=== PATIENT | female | born 1950 | race Caucasian/White ===

== ENCOUNTER 2017-04-28 17:03 | Emergency (ER) | payer MEDICARE ==
[~2017-04-28] VITALS: Ht 167.6 cm; Wt 68.0 kg
[2017-04-28 17:55] LABS: INFLUENZA A NONE DETECTED (NONE DETECT); INFLUENZA B NONE DETECTED (NONE DETECT)
[2017-04-28] MEDS ORDERED: WELLBUTRIN SR150 MG PO (17:58)
[2017-04-28] MEDS ORDERED: NORVASC PO (17:58)
[2017-04-28] MEDS ORDERED: ASPIRIN81 MG PO (17:58)
[2017-04-28] MEDS ORDERED: SINGULAIR10 MG PO (17:59)
[2017-04-28] MEDS ORDERED: SPIRIVA HANDIH18 MCG IN (17:59)
[2017-04-28 18:26] LABS: HEMATOCRIT 39.6 % (37.0-47.0); HEMOGLOBIN 12.8 g/dl (12.0-16.0); IMMATURE GRANULOCYTES 0.4 % (0.0-1.0); MEAN CELL VOLUME 92.5 fL CALC (80.0-100.0); MEAN CORPUSCULAR HGB 29.9 pG CALC (26.0-32.0); MEAN CORPUSCULAR HGB CONC 32.3 g/L CALC (32.0-36.0); NEUT# 6.59 thou/uL (2.00-7.15); RED BLOOD COUNT 4.28 mill/uL (4.20-5.60); URINE BILIRUBIN - DIPSTICK NEGATIVE (NEGATIVE); URINE BLOOD DIPSTICK NEGATIVE (NEGATIVE); URINE COLOR YELLOW; URINE GLUCOSE - DIPSTICK NEGATIVE (NEGATIVE); URINE KETONE NEGATIVE (NEGATIVE); URINE LEUK ESTERASE NEGATIVE (NEGATIVE); URINE NITRITE - DIPSTICK NEGATIVE (Negative); URINE PH 5.5 (4.5-8.0); URINE PROTEIN - DIPSTICK NEGATIVE (NEG-TRACE); URINE UROBILINOGEN - DIPSTICK 0.2 E.U./dL (0.2)
[2017-04-28 18:44] LABS: URINE CLARITY CLEAR
[2017-04-28 18:53] LABS: ALBUMIN 4.6 g/dL (3.2-5.0); ALKALINE PHOSPHATASE 110 u/l (38-126); ANION GAP 17 (6-22 (CALC)); BILIRUBIN, TOTAL 0.9 mg/dL (0.0-1.4); BUN 10 mg/dL (8-23); BUN/CREATININE RATIO 15 (12-20 (CALC)); CARBON DIOXIDE 26 mmol/l (22-30); CHLORIDE 99 mmol/l (95-108); CREATININE 0.7 mg/dL (0.5-1.0); GFR > 60 ML/MIN (>=60 (CALC)); GFR FOR AFR.AMER. > 60 ML/MIN (>=60 (CALC)); LIPASE 31 u/l (23-300); POTASSIUM 4.8 mmol/l (3.5-5.1); SGOT/AST 32 u/l (9-36); SGPT/ALT 24 u/l (11-66); SODIUM 136 mmol/l (137-146); TOTAL PROTEIN 7.4 g/dL (6.3-8.2)
[2017-04-28] MEDS ORDERED: ZOFRAN4 M1 PO (19:03)
[2017-04-28 19:08] VITALS: BP 140/68
== END 2017-04-28 19:08 | disposition home or self-care (01) ==
LOC: ED 17:03
PROVIDERS: Family Medicine
DX: K52.9 Noninfective gastroenteritis and colitis, unspecified (principal); I10 Essential (primary) hypertension; J44.9 Chronic obstructive pulmonary disease, unspecified; F41.9 Anxiety disorder, unspecified; F17.210 Nicotine dependence, cigarettes, uncomplicated

== ENCOUNTER 2017-07-17 07:03 | Day surgery (SDC) | payer MEDICARE ==
[~2017-07-17] VITALS: Ht 167.6 cm; Wt 74.8 kg
[~2017-07-17 07:03] MED LIST: ASPIRIN81 MG PO; CHANTIX PO; ESCITALOPRAM OX10 MG PO; NORVASC PO; SINGULAIR10 MG PO; SPIRIVA HANDIH18 MCG IN; STIOLTO RESPIMA1 AER IN; WELLBUTRIN SR150 MG PO; ZOFRAN4 M1 PO
[2017-07-17 09:47] VITALS: BP 133/62
== END 2017-07-17 10:10 | disposition home or self-care (01) ==
LOC: ENDO 07:03
PROVIDERS: ATTEND Surgery
PROC: 0DBL8ZX Excision of Transverse Colon, Via Natural or Artificial Opening Endoscopic, Diagnostic (ICD-10-PCS; principal; 2017-07-17)
DX: Z12.11 Encounter for screening for malignant neoplasm of colon (principal); K63.5 Polyp of colon; Q43.8 Other specified congenital malformations of intestine; K57.30 Diverticulosis of large intestine without perforation or abscess without bleeding; I10 Essential (primary) hypertension; F17.210 Nicotine dependence, cigarettes, uncomplicated

== ENCOUNTER 2018-11-02 18:38 | Inpatient (IN) | payer MEDICARE ==
[~2018-11-02] VITALS: Ht 167.6 cm; Wt 90.0 kg
[2018-11-02 11:00] VITALS: BP 119/73
[2018-11-02 11:15] VITALS: BP 119/74
[2018-11-02 11:30] VITALS: BP 96/70
[~2018-11-02 18:38] MED LIST changes: +PERCOCET 5/325M1 TAB PO; +ZYRTEC10 MG PO
--- NOTE | 2018-11-02 18:38 | NUR ---
PATIENT IMMEDIATELY TO TREATMENT AREA IN RESPIRATORY DISTRESS. PATIENT SOB FOR PAST 2 DAYS WORSENING TODAY. MD AT BEDSIDE FOR EXAM
--- NOTE | 2018-11-02 19:00 | NUR ---
REPORT RECEIVED. CARE ASSUMED. PATIENT PRESENTLY ON BIPAP AND TOLERATING WELL. DAUGHTER AT BEDSIDE.
[2018-11-02 19:14] LABS: HEMATOCRIT 33.3 % (37.0-47.0); HEMOGLOBIN 10.8 g/dl (12.0-16.0); IMMATURE GRANULOCYTES 1.2 % (0.0-5.0); MEAN CORPUSCULAR HGB 30.2 pG CALC (26.0-32.0); MEAN CORPUSCULAR HGB CONC 32.4 g/L CALC (32.0-36.0); NEUT# 21.08 thou/uL (2.00-7.15); RED BLOOD COUNT 3.58 mill/uL (4.20-5.60); RED CELL DISTRI WIDTH 19.9 % (11.5-15.5)
--- NOTE | 2018-11-02 19:25 | NUR ---
PATIENT MEDICATED ORDERED. VAPOR COATER AT BEDSIDE FOR SCAN OF ABDOMEN.
[2018-11-02 19:26] LABS: ALKALINE PHOSPHATASE 103 u/l (38-126); BUN 15 mg/dL (8-23); BUN/CREATININE RATIO 24 (12-20 (CALC)); CARBON DIOXIDE 31 mmol/l (22-30); CHLORIDE 92 mmol/l (95-108); CREATININE 0.6 mg/dL (0.5-1.0); GFR > 60 ML/MIN (>=60 (CALC)); GFR FOR AFR.AMER. > 60 ML/MIN (>=60 (CALC)); POTASSIUM 3.9 mmol/l (3.5-5.1); SGOT/AST 34 u/l (9-36); TOTAL PROTEIN 6.8 g/dL (6.3-8.2)
[2018-11-02 19:27] LABS: ANION GAP 11 (6-22 (CALC)); BILIRUBIN, TOTAL 1.7 mg/dL (0.0-1.4); SODIUM 130 mmol/l (137-146)
--- NOTE | 2018-11-02 20:09 | NUR ---
PATIENT STATES SHE IS FEELING BETTER AND DOESN'T WISH TO STAY. PATIENT ENCOURAGED TO STAY TO AT LEAST GET RESULTS BEFORE DECIDING TO LEAVE.
--- NOTE | 2018-11-02 20:35 | NUR ---
MD AT BEDSIDE TO DISCUSS ALL RESULTS AND PLAN OF CARE.
--- NOTE | 2018-11-02 20:45 | NUR ---
PATIENT HAS DECIDED TO STAY FOR ADMISSION
[2018-11-02] MEDS ORDERED: IPRATROPIU0.5 MG/3 M IN (21:13)
--- NOTE | 2018-11-02 21:30 | NUR ---
CONTINUE AWAITING ADMIT ORDERS TO TRANSPORT PATIENT TO FLOOR. PATIENT AWARE OF DELAY. TOLERATING BIPAP. DENIES ANY NEW COMPLAINTS.
--- NOTE | 2018-11-02 22:30 | NUR ---
REPORT CALLED TO BEN WILLIS IN ICU. RESPIRATORY NOTIFIED, AND PATIENT READIED FOR TRANSPORT TO FLOOR.
--- NOTE | 2018-11-02 22:40 | NUR ---
PATIENT TO FLOOR WITH RN, AND RESPIRATORY ON BIPAP VIA STRETCHER.
--- NOTE | 2018-11-02 22:50 | NUR ---
PT. ARRIVES VIA STRETCHER FROM ER WITH NSG SUPER, MODEL MAKER FIBERGLASS AND RT. ARRIVES ON BIPAP AT THIS TIME. PT. ABLE TO STAND AT BEDSIDE AND TRANSFER HERSELF TO ICU BED. REFUSES TO TAKE OFF JEANS AT THIS TIME. RESPS EVEN AND UNLABORED. SKIN WARM AND DRY. AASHISH. STATES WITH 3/10 PAINT TO RT. RIBS/UPPER ABDOMINAL AREA. STATES SHARP TYPE PAIN. AFEBRILE. RESPS EVEN, UNLABORED ON THE BIPAP. SPO2 IS 97% ON BIPAP. BOWEL SOUNDS ACTIVE. LUNG SOUNDS WITH EXPIRATORY WHEEZES THROUGHOUT. INTERMITTENT COUGH NOTED. VSS. DISTIL PULSES INTACT.
--- NOTE | 2018-11-02 23:30 | NUR ---
PT. MEDICATED PER PHYSICIAN ORDERS. REMOVED FROM BIPAP AT THIS TIME AND PLACED ON 3L VIA NC. SPO2 IW 92-94 ON THE NASAL CANNULA. REMAINS WITH INTERMITTED COUGHING AND COMPLAINTS OF INCREASED PAIN WITH COUGH/DEEP BREATHING. WILL MEDICATE ORDERED. CALL LIGHT REMAINS WITHIN REACH.
[2018-11-03] VITALS (13 sets, daily range): BP systolic 82–129; BP diastolic 51–76
--- NOTE | 2018-11-03 00:52 | NUR ---
PT. RESTING WITH EYES CLOSED AND LIGHT SNORING RESPIRATIONS. VSS. PT. REMAINS ON 3L NC. SR AT 82 AT THIS TIME. SPO2 IS 94% ON 3L. REMAINS AFEBRILE. BP STABLE. CALL LIGHT REMAINS WITHIN REACH.
--- NOTE | 2018-11-03 02:30 | NUR ---
PT. RESTING IN BED IN NO DISTRESS. RESPS REMAIN EVEN AND UNLABORED AT THIS TIME ON 3L VIA NC. CALL LIGHT REMAINS WITHIN REACH. WILL CONTINUE TO MNITOR.
--- NOTE | 2018-11-03 04:13 | NUR ---
PT. ASSISTED TO BSC. REMAINS WITH INTERMITTENT COUGHING EPISODES. STATES SHE NEEDS A BREATHING TREATMENT. PT. APPEARS IN NO DISTRESS. SPEAKS CONTINUOUSLY IN FULL SENTENCES.
--- NOTE | 2018-11-03 04:24 | NUR ---
PT. CONTINUES TO SLEEP IN BED IN NO DISTRESS. VSS. RESPS EVEN, SHALLOW, UNLABORED. REMAINS AFEBRILE. CALL LIGHT REMAINS WITHIN REACH. WILL CONTINUE TO MONITOR.
--- NOTE | 2018-11-03 06:18 | NUR ---
IV AZACTAM INFUSING WITHOUT EVIDENCE OF REACTIONS. MEDICATED WITH SOLUMEDROL ORDERED. PT. CONTINUES TO STATE HER PAIN IS MUCH IMPROVED AND SHE IS FEELING MUCH BETTER THIS AM. REMAINS EASILY AROUSABLE TO LIGHT VERBAL STIMULI. CALL LIGHT REMAINS WITHIN REACH.
--- NOTE | 2018-11-03 06:45 | NUR ---
REPORT RECVD FROM BEN WILLIS AT START OF SHIFT
--- NOTE | 2018-11-03 08:00 | NUR ---
PT SLEEPING, NO S/S OF DISTRESS. ON 3L NC. NO SNORING. APPEARS RESTFUL. WILL LET PT SLEEP. BREAKFAST TRAY LEFT IN ROOM, WILL HEAT UP WHEN PT IS READY.
--- NOTE | 2018-11-03 08:40 | NUR ---
DR LISA ON UNIT, GAVE VERBAL ORDERS TO PLACE AM LABS.
--- NOTE | 2018-11-03 09:15 | NUR ---
DR LISA @BEDSIDE, ASSESSING PT & DISCUSSING POC & TEST RESULTS.
--- NOTE | 2018-11-03 09:25 | NUR ---
PTS FOOD WARMED UP. EXTRA POT OF COFFEE MADE FOR PT. LAB @BEDSIDE FOR AM DRAW.
[2018-11-03 09:43] LABS: HEMATOCRIT 33.3 % (37.0-47.0); HEMOGLOBIN 10.9 g/dl (12.0-16.0); IMMATURE GRANULOCYTES 1.4 % (0.0-5.0); MEAN CELL VOLUME 93.3 fL CALC (80.0-100.0); MEAN CORPUSCULAR HGB 30.5 pG CALC (26.0-32.0); MEAN CORPUSCULAR HGB CONC 32.7 g/L CALC (32.0-36.0); NEUT# 18.78 thou/uL (2.00-7.15); RED BLOOD COUNT 3.57 mill/uL (4.20-5.60); RED CELL DISTRI WIDTH 19.3 % (11.5-15.5)
--- NOTE | 2018-11-03 09:59 | NUR ---
OLD NICOTENE PATCH REMOVED & NEW PATCH PLACED ON UPPER LEFT ARM.
--- NOTE | 2018-11-03 10:09 | NUR ---
PT TO CT WITH AUX BY WC WITH O2.
[2018-11-03 10:27] LABS: ALBUMIN 3.7 g/dL (3.2-5.0); ALKALINE PHOSPHATASE 98 u/l (38-126); ANION GAP 12 (6-22 (CALC)); BILIRUBIN, TOTAL 0.9 mg/dL (0.0-1.4); BUN 13 mg/dL (8-23); BUN/CREATININE RATIO 25 (12-20 (CALC)); CARBON DIOXIDE 30 mmol/l (22-30); CHLORIDE 93 mmol/l (95-108); CREATININE 0.5 mg/dL (0.5-1.0); GFR > 60 ML/MIN (>=60 (CALC)); GFR FOR AFR.AMER. > 60 ML/MIN (>=60 (CALC)); POTASSIUM 3.6 mmol/l (3.5-5.1); SGOT/AST 22 u/l (9-36); SODIUM 132 mmol/l (137-146); TOTAL PROTEIN 6.5 g/dL (6.3-8.2)
--- NOTE | 2018-11-03 10:29 | NUR ---
PT RETURNED TO ICU3 IN STABLE CONDITION.
--- NOTE | 2018-11-03 10:34 | NUR ---
RT @BEDSIDE FOR BREATHING TREATMENT.
--- NOTE | 2018-11-03 10:57 | NUR ---
PT UP TO BATHROOM FOR URINATION W/STEADY GAIT. REFUSING NONSKID SOCKS. RECLINER BROUGHT IN PER PT REQUEST. GIVEN ANOTHER CUP OF HOT COFFEE. PT TALKING ON THE PHONE TRYING TO GET FOOD STAMPS.
--- NOTE | 2018-11-03 11:59 | NUR ---
PT SITTING UP IN RECLINER, EATING LUNCH. NO S/S OF DISTRESS AT THIS TIME. WILL CONTINUE TO MONITOR.
--- NOTE | 2018-11-03 13:19 | NUR ---
PT TAKEN TO MSU FOR A SHOWER. EDUCATED ON SHOWER PULL CORD FOR DISTRESS.
--- NOTE | 2018-11-03 13:48 | NUR ---
PT RETURNED TO ICU3. O2 SATS 90-91% ON RA. PLACED ON 2L NC. PT LAUGHING/JOKING WITH STAFF. APPRECIATIVE.
--- NOTE | 2018-11-03 13:58 | NUR ---
ROWAN @BEDSIDE ROUNDING
--- NOTE | 2018-11-03 17:27 | NUR ---
CHANGED DRESSING ON IV. RT @BEDSIDE FOR BREATHING TREATMENT.
--- NOTE | 2018-11-03 17:54 | NUR ---
PT SITTING UP IN BED, EATING DINNER.
--- NOTE | 2018-11-03 18:00 | NUR ---
NICOTENE PATCH REPLACED ON PTS LEFT UPPER ARM AFTER PREVIOUS PATCH STARTED PEELING OFF AFTER SHOWER.
--- NOTE | 2018-11-03 18:14 | NUR ---
DAUGHTER @BEDSIDE. BROUGHT PTS GLASSES.
--- NOTE | 2018-11-03 18:45 | NUR ---
REPORT FROM Sarahi VILLEDA RN. ASSUMED PT. CARE.
--- NOTE | 2018-11-03 19:40 | NUR ---
PT. FOUND AWAKE, ALERT, ORIENTED X 3. RESPS EVEN AND UNLABORED. SKIN WARM AND DRY. AFEBRILE. EXPIRATORY WHEEZES NOTED THROUGHOUT. DENIES BM TODAY. STATES HER RT. RIB PAIN IS IMPROVED AND ONLY HAS THE DISCOMFORT WITH COUGHING OR DEEP BREATHING. DISTIL PULSES INTACT. BOWEL SOUNDS ACTIVE. CALL LIGHT REMAINS WITHIN REACH. DENIES COMPLAINTS OF PAIN OR NEEDS. WILL CONTINUE TO MONITOR.
--- NOTE | 2018-11-03 21:30 | NUR ---
PT. AMBULATORY WITH STEADY GAIT TO RESTROOM AT THIS TIME. NO DISTRESS. SPO2 IS 90% ON RA UPON AMBULATION TO AND FROM RESTROOM WITHOUT OXYGEN. PLACED BACK ON THE MONITOR. PT. TOLERATED WELL.
--- NOTE | 2018-11-03 22:15 | NUR ---
PT. PROVIDED WITH HS SNACK. IV AZACTAM INFUSING WITHOUT SX OF INFILTRATION OR REACTIONS. SPO2 REMAINS STABLE. CALL LIGHT REMAINS WITHIN REACH. WILL CONTINUE TO ASSESS.
[2018-11-04] VITALS (11 sets, daily range): BP systolic 98–140; BP diastolic 56–78
--- NOTE | 2018-11-04 00:12 | NUR ---
PT. STATES HER PAIN HAS STARTED TO INCREASE. MEDICATED PER PHYSICIAN ORDERS. CALL LIGHT REMAINS WITHIN REACH. RESPS REMAIN EVEN AND UNLABORED. WILL CONTINUE TO CLOSELY MONITOR.
--- NOTE | 2018-11-04 02:05 | NUR ---
PT. SITTING UP IN BED IN NO DISTRESS PLAYING ON CELL PHONE AT THIS TIME. CALL IGHT REMAINS WITHIN REAC. WILL CONTINUES TO CLOSELY MONITOR.
--- NOTE | 2018-11-04 04:45 | NUR ---
PT. REMAINS AWAKE, ALERT AND ORIENTED X 3. LAB AT BEDSIDE AT THIS TIME TO DRAW PATIENT. REMAINS AFEBRILE. CONTINUES WITH INTERMITTENT WHEEZING TYPE COUGH. SKIN WARM AND DRY. AASHISH DENIES OTHER COMPLAINTS OR NEEDS AT THIS TIME.
[2018-11-04 05:16] LABS: HEMATOCRIT 30.7 % (37.0-47.0); HEMOGLOBIN 10.4 g/dl (12.0-16.0); MEAN CELL VOLUME 90.3 fL CALC (80.0-100.0); MEAN CORPUSCULAR HGB 30.6 pG CALC (26.0-32.0); MEAN CORPUSCULAR HGB CONC 33.9 g/L CALC (32.0-36.0); RED BLOOD COUNT 3.4 mill/uL (4.20-5.60); RED CELL DISTRI WIDTH 19.2 % (11.5-15.5)
[2018-11-04 05:39] LABS: ANION GAP 10 (6-22 (CALC)); BUN 19 mg/dL (8-23); BUN/CREATININE RATIO 36 (12-20 (CALC)); CARBON DIOXIDE 30 mmol/l (22-30); CHLORIDE 93 mmol/l (95-108); CREATININE 0.5 mg/dL (0.5-1.0); GFR > 60 ML/MIN (>=60 (CALC)); GFR FOR AFR.AMER. > 60 ML/MIN (>=60 (CALC)); POTASSIUM 4.2 mmol/l (3.5-5.1); SODIUM 130 mmol/l (137-146)
--- NOTE | 2018-11-04 06:45 | NUR ---
RECVD REPORT FROM BEN WILLIS AT START OF SHIFT.
--- NOTE | 2018-11-04 07:26 | NUR ---
PT ASSISTED UP WITH STEADY GAIT TO USE BATHROOM. PT C/O NOT SLEEPING ALL NIGHT; STATES SHE IS WORRIED ABOUT HER HEALTH & HER MIND IS RACING.
--- NOTE | 2018-11-04 08:04 | NUR ---
PT 89% ON RA, PLACED BACK ON 2L NC.
--- NOTE | 2018-11-04 08:18 | NUR ---
DR LISA @BEDSIDE, ASSESSING PT, DISCUSSING POC & TEST RESULTS.
--- NOTE | 2018-11-04 09:07 | NUR ---
S: DEX SHAHID is a 68 F who presents with RLL PNEUMONIA. She has a history of COPD, PRODUCTIVE COUGH. All medications in patient's chart were reviewed. O: VS: BP 98/63 , P 86 , RR 20 ,T 97 W 90 kg, HT 66 IN, Scr= 0.5 ,CrCl= 59 ml/min A: Blood culture pending P: Patient is on VANCOMYCIN AND AZACTAM . Vancomycin ordered for pharmacy to dose. Start Vancomycin 1 GRAM Q12H IV . Vancomycin trough is drawn before the 4th dose on 11/05/18 @ 0630. Vancomycin goal trough is between <15-20 mcg/ml>. Pharmacy will follow and or advise on antibiotics use as needed.
--- NOTE | 2018-11-04 10:08 | NUR ---
REMOVED OLD PATCH & REPLACED NICOTENE PATCH ON UPPER RIGHT SHOULDER. PT STATES SHE WANTS TO TAKE A NAP NOW.
--- NOTE | 2018-11-04 11:41 | NUR ---
PT SLEEPING IN BED, SNORING. LUNCH HELD UNTIL PT AWAKENS. VSS. WILL CONTINUE TO MONITOR.
--- NOTE | 2018-11-04 13:05 | NUR ---
PT SITTING UP IN BED, EATING LUNCH. PT APPEARS HAPPY, JOKING W/STAFF.
--- NOTE | 2018-11-04 15:25 | NUR ---
PT TRANSFERED BACK TO BED BY SELF. PT FREQUENTLY REMOVED BP CUFF OR UNSCREWS IT. REMINDED PT TO CALL FOR ASSISTANCE BEFORE GETTING OUT OF BED. PT REMINDED TO USE CALLBELL FOR STAFF INSTEAD OF YELLING OUT.
--- NOTE | 2018-11-04 16:37 | NUR ---
PT SITTING UP IN BED, WORKING ON HER BEAD JEWELRY & TALKING ON HER PHONE. NO S/S OF DISTRESS AT THIS TIME.
--- NOTE | 2018-11-04 17:13 | NUR ---
PT STATES SHE FEELS JITTERY & CONFINED, MEDICATED FOR ANXIETY.
--- NOTE | 2018-11-04 18:45 | NUR ---
REPORT FROM Sarahi VILLEDA RN. ASSUMED PT. CARE.
--- NOTE | 2018-11-04 19:45 | NUR ---
PT. FOUND SITTING UP IN BED IN NO DISTRESS. RESPS EVEN AND UNLABORED. DAUGHTER AT BEDSIDE WITH PATIENT AT THIS TIME. VSS STABLE. AFEBRILE. DENIES BM TODAY. CONTINUES WITH EXPIRATORY WHEEZES, BUT MUCH IMPROVED TONIGHT. NO EDEMA NOTED. DISTIL PULSES INTACT. CALL LIGHT WITHIN REACH. WILL CONTINUE TO CLOSELY MONITOR.
--- NOTE | 2018-11-04 21:35 | NUR ---
PT. SITTING UP IN BED IN NO DISTRESS. RESPS EVEN AND UNLABORED. SKIN IS WARM AND DRY. DENIES COMPLAINTS OF PAIN OR NEED AT THIS TIME. WATER PITCHER REFILLED. WILL CONTINUE TO CLOSELY MONITOR.
--- NOTE | 2018-11-04 23:00 | NUR ---
PT. AMBULATORY WITH STEADY GAIT TO RESTROOM AND BACK TO BED. REMAINS IN NO DISTRESS. RESPS REMAIN EVEN AND UNLABORED. DENIES COMPLAINTS OF PAIN OR NEED AT THIS TIME. WILL CONTINUE TO ASSESS
[2018-11-05] VITALS (9 sets, daily range): BP systolic 118–141; BP diastolic 64–83
--- NOTE | 2018-11-05 00:01 | NUR ---
PT. REMAINS AWAKE, WATCHING TELEVISION IN NO DISTRESS. PROVIDED WITH LIP MOISTURIZER PER HER REQUEST. DENIES OTHER COMPLAINTS OR NEEDS.
--- NOTE | 2018-11-05 01:54 | NUR ---
PT. RESTING IN BED ON LT. SIDE IN NO DISTRESS. RESPS REMAIN EVEN AND UNLABORED. PT. WITH INTERMITTENT COUGHING EPISODES, BUT SEEMS TO HAVE SUBSIDED AT THIS TIME. CALL LIGHT REMAINS WITHIN REACH. WILL CONTINUE TO ASSESS.
--- NOTE | 2018-11-05 03:55 | NUR ---
PT. RESTING IN BED ON LT. SIDE IN NO DISTRESS. VSS. RESPS REMAIN EVEN AND UNLABORED. AFEBRILE. CALL LIGHT REMAINS WITHIN REACH. WILL CONTINUE TO CLOSELY MONITOR.
--- NOTE | 2018-11-05 05:57 | NUR ---
NEB TREATMENT IN PROGRESS AT THIS TIME. PT. AWAKE, ALERT, ORIENTED X 3. SKIN REMAINS WARM AND DRY. AFEBRILE. CALL LIGHT REMAINS WITHIN REACH. MEDICATED PER PHYSICIAN ORDERS. WILL CONTINUE TO ASSESS.
--- NOTE | 2018-11-05 06:33 | NUR ---
LAB AT BEDSIDE TO DRAW PATIENT. PROVIDED WITH COFFEE PER HER REQUEST. REMAINS STABLE. NO DISTRESS.
[2018-11-05 06:41] LABS: HEMOGLOBIN 11.2 g/dl (12.0-16.0); MEAN CELL VOLUME 90.7 fL CALC (80.0-100.0); MEAN CORPUSCULAR HGB 29.9 pG CALC (26.0-32.0); MEAN CORPUSCULAR HGB CONC 32.9 g/L CALC (32.0-36.0); RED BLOOD COUNT 3.75 mill/uL (4.20-5.60); RED CELL DISTRI WIDTH 19.7 % (11.5-15.5)
[2018-11-05 06:54] LABS: ANION GAP 9 (6-22 (CALC)); BUN 16 mg/dL (8-23); BUN/CREATININE RATIO 27 (12-20 (CALC)); CARBON DIOXIDE 35 mmol/l (22-30); CHLORIDE 97 mmol/l (95-108); CREATININE 0.6 mg/dL (0.5-1.0); GFR > 60 ML/MIN (>=60 (CALC)); GFR FOR AFR.AMER. > 60 ML/MIN (>=60 (CALC)); POTASSIUM 4.3 mmol/l (3.5-5.1); SODIUM 136 mmol/l (137-146)
--- NOTE | 2018-11-05 07:33 | NUR ---
PT SITTING UP IN BED. OFF MONITOR & O2 TO USE BATHROOM. PT HAS STEADY GAIT. 91% ON RA. PT STATES SHE FEELS BETTER WITH 02 ON. TREMORS/SHAKES TO BILATERAL HANDS. PT STATES SHE ONLY CRAVES CIGARETTES AFTER MEALS, STATES NICOTENE HELPS. MEDICATED FOR ANXIETY. GIVEN A CAN OF COLA TO OFSET POSSIBLE CAFFEINE WITHDRAWL. SPEECH CLEAR. PT WANTS TO HAVE BM TODAY.
--- NOTE | 2018-11-05 07:44 | NUR ---
PT SITTING UP IN BED, EATING BREAKFAST.
--- NOTE | 2018-11-05 08:05 | NUR ---
DR LISA @BEDSIDE FOR ASSESSMENT, DISCUSSING TEST RESULTS & POC.
--- NOTE | 2018-11-05 08:23 | NUR ---
RT @BEDSIDE FOR 6 MIN WALK TEST TO ASSESS FOR HOME O2.
--- NOTE | 2018-11-05 09:45 | NUR ---
RT @BEDSIDE FOR BREATHING TREATMENT.
--- NOTE | 2018-11-05 10:28 | NUR ---
PT SLEEPING IN BED, NO S/S OF DISTRESS. 95-96% O2 ON RA. WILL CONTINUE TO MONITOR.
--- NOTE | 2018-11-05 11:48 | NUR ---
PT SITTING UP IN BED, EATING LUNCH.
--- NOTE | 2018-11-05 12:25 | NUR ---
PT UP, WALKING AROUND UNIT. STEADY GAIT. PT STATES SHE FELLS BETTER WALKING AROUND, LOOKING OUT WINDOWS. PT ABLE TO WALK & TALK W/OUT SOB.
--- NOTE | 2018-11-05 13:40 | NUR ---
RT @BEDSIDE FOR BREATHING TREATMENT.
--- NOTE | 2018-11-05 13:47 | NUR ---
TOBACCO CESSATION CHARGE ACCOUNT IDENTIFICATION CLERK @BEDSIDE, CALLED BY PTS DAUGHTER, TO SPEAK WITH & GIVE INFO TO PT.
--- NOTE | 2018-11-05 14:05 | NUR ---
PT REQUEST CAN OF [place]. CALLING FAMILY TO BRING HER COFFEE. SPEAKING WITHOUT DYSPNEA ON RA. WILL CONTINUE TO MONITOR.
--- NOTE | 2018-11-05 14:09 | NUR ---
PT OVERHEARD TALKING ON HER PERSONAL PHONE, ASKING THE OTHER PERSON TO GET HER CIGARETTES "JUST IN CASE, BUT SHE'S GOING TO TRY REAL HARD TO QUIT".
--- NOTE | 2018-11-05 14:37 | NUR ---
ROWAN @BEDSIDE FOR ROUNDING.
--- NOTE | 2018-11-05 16:03 | NUR ---
PT SITTING ON SIDE OF BAR, WATCHING TV. NO S/S OF DISTRESS. BREATHING IS EVEN/UNLABORED. ON ROOM AIR. DENIES PAIN. VSS. PT APPEARS FIDGETY; NICOTENE PATCH IN PLACE. WILL CONTINUE TO MONITOR.
--- NOTE | 2018-11-05 16:13 | NUR ---
PT UP TO BATHROOM, NO BM. PT WALKING AROUND UNIT.
--- NOTE | 2018-11-05 17:05 | NUR ---
DR LISA @BEDSIDE EVALUATING PT.
--- NOTE | 2018-11-05 17:06 | NUR ---
PT EDUCATED ON DANGERS OF SMOKING WHILE WEARING THE NICOTENE PATCH BY THIS RN & DR LISA. PT VERBALIZED UNDERSTANDING OF RISKS.
[2018-11-05] MEDS ORDERED: AMBIEN5 MG PO (17:08)
[2018-11-05] MEDS ORDERED: NICOTINE PO (17:08)
[2018-11-05] MEDS ORDERED: PREDNISONE10 MG PO (17:08)
[2018-11-05] MEDS ORDERED: XANAX0.25 MG PO (17:08)
[2018-11-05] MEDS ORDERED: LEVAQUIN750 MG PO (17:08)
--- NOTE | 2018-11-05 17:13 | NUR ---
IV DC'D, TIP INTACT, DRESSING APPLIED. PT REMINDED OF DANGERS OF SMOKING WITH NICOTENE PATCH. DR LISA OK WITH SENDING PT HOME WITH PATCH ON. PT DISCONNECTED FROM MONITORS TO GET DRESSED.
--- NOTE | 2018-11-05 17:37 | NUR ---
PT EDUCATED ON DC INSTRUCTIONS INCLUDING NEW & DC MEDICATIONS, F/UP CARE, WHEN TO RETURN TO HOSPITAL, DIET, PORTAL. PT HANDED NEW RX. PT WAITING IN ROOM FOR RIDE TO COME GET HER. REFUSED DINNER TRAY, [facility]
--- NOTE | 2018-11-05 18:32 | NUR ---
PTS DAUGHTER ARRIVED, PT REFUSED WC, WALKED DOWN WITH THIS RN.
== END 2018-11-05 18:32 | disposition home or self-care (01) | DRG 193 ==
LOC: ED 18:38 → ED-I 20:25 → ED 20:32 → ICU 20:33
PROVIDERS: Family Medicine; ADMIT Internal Medicine; ATTEND Internal Medicine
PROC: 5A09357 Assistance with Respiratory Ventilation, Less than 24 Consecutive Hours, Continuous Positive Airway Pressure (ICD-10-PCS; principal; 2018-11-02)
PROC: 3E0234Z Introduction of Serum, Toxoid and Vaccine into Muscle, Percutaneous Approach (ICD-10-PCS; 2018-11-04)
DX: J18.9 Pneumonia, unspecified organism (principal); J96.02 Acute respiratory failure with hypercapnia; J96.01 Acute respiratory failure with hypoxia; J44.1 Chronic obstructive pulmonary disease with (acute) exacerbation; J44.0 Chronic obstructive pulmonary disease with (acute) lower respiratory infection; I10 Essential (primary) hypertension; K80.20 Calculus of gallbladder without cholecystitis without obstruction; F41.8 Other specified anxiety disorders; F17.200 Nicotine dependence, unspecified, uncomplicated; Z23 Encounter for immunization
CPT/HCPCS: J1650; Q9967

== ENCOUNTER 2020-06-24 | Emergency (ER) | payer MEDICARE ==
[~2020-06-24] MED LIST changes: +AMBIEN5 MG PO; +IPRATROPIU0.5 MG/3 M IN; +LEVAQUIN750 MG PO; +NICOTINE PO; +PREDNISONE10 MG PO; +XANAX0.25 MG PO
[2020-06-24] MEDS ORDERED: FLUOXETINE40 MG PO (19:25)
[2020-06-24] MEDS ORDERED: WOMENS MULTIVIT1 TAB PO (19:26)
[2020-06-24] MEDS ORDERED: B121000 MCG PO (19:27)
[2020-06-24] MEDS ORDERED: SUPER B-COMPLEX1 TAB PO (19:28)
[2020-06-24] MEDS ORDERED: FOLATE400 MCG PO (19:29)
[2020-06-24] MEDS ORDERED: CALCIUM/D3600 MG PO (19:30)
[2020-06-24] MEDS ORDERED: EQL IRON SUPPL325 MG PO (19:32)
== END 2020-06-24 20:00 | disposition home or self-care (01) ==
DX: S63.502A Unspecified sprain of left wrist, initial encounter (principal); I10 Essential (primary) hypertension; J44.9 Chronic obstructive pulmonary disease, unspecified; F41.9 Anxiety disorder, unspecified; F17.210 Nicotine dependence, cigarettes, uncomplicated; W01.0XXA Fall on same level from slipping, tripping and stumbling without subsequent striking against object, initial encounter; Y93.E1 Activity, personal bathing and showering; Y92.002 Bathroom of unspecified non-institutional (private) residence as the place of occurrence of the external cause

== ENCOUNTER 2020-12-22 06:50 | Day surgery (SDC) | payer MEDICARE ==
[~2020-12-22] VITALS: Ht 167.6 cm; Wt 81.6 kg
[~2020-12-22 06:50] MED LIST changes: +ATROVENT H17 MCG/ACT IN; +B121000 MCG PO; +BUSPIRONE5 MG PO; +CALCIUM/D3600 MG PO; +D31000 UNIT PO; +EQL IRON SUPPL325 MG PO; +FLUOXETINE40 MG PO; +FOLATE400 MCG PO; +FUROSEMIDE20 MG PO; +PROLIA60 MG/ML SC; +SUPER B-COMPLEX1 TAB PO; +WOMENS MULTIVIT1 TAB PO
[2020-12-22 09:27] VITALS: BP 159/66
== END 2020-12-22 09:30 | disposition home or self-care (01) ==
LOC: ENDO 06:50 → ORM 08:00 → ENDO 08:00
PROVIDERS: ATTEND Surgery
PROC: 0DBG8ZX Excision of Left Large Intestine, Via Natural or Artificial Opening Endoscopic, Diagnostic (ICD-10-PCS; principal; 2020-12-22)
PROC: 0DBF8ZX Excision of Right Large Intestine, Via Natural or Artificial Opening Endoscopic, Diagnostic (ICD-10-PCS; 2020-12-22)
PROC: 0DBN8ZX Excision of Sigmoid Colon, Via Natural or Artificial Opening Endoscopic, Diagnostic (ICD-10-PCS; 2020-12-22)
DX: Z12.11 Encounter for screening for malignant neoplasm of colon (principal); D12.4 Benign neoplasm of descending colon; D12.2 Benign neoplasm of ascending colon; D12.5 Benign neoplasm of sigmoid colon; K57.30 Diverticulosis of large intestine without perforation or abscess without bleeding; K64.8 Other hemorrhoids; I10 Essential (primary) hypertension; J45.909 Unspecified asthma, uncomplicated; F17.210 Nicotine dependence, cigarettes, uncomplicated; Z86.010 Personal history of colon polyps

== ENCOUNTER 2021-06-15 08:43 | Emergency (ER) | payer MEDICARE ==
[~2021-06-15] VITALS: Ht 167.6 cm; Wt 82.3 kg
[2021-06-15 09:33] VITALS: BP 132/82
[2021-06-15 09:40] VITALS: BP 112/75
[2021-06-15] MEDS ORDERED: BACTRIM DS1 TAB PO (09:40)
[2021-06-15] MEDS ORDERED: MUPIROCIN21 (09:40)
[2021-06-15] MEDS ORDERED: HYDROCO/APAP1 TA9 PO (09:40)
[2021-06-15] MEDS ORDERED: OMNI-PAC300 MG PO (09:40)
[2021-06-15] MEDS ORDERED: DIFLUCAN150 MG PO (09:40)
[2021-06-15 09:51] VITALS: BP 131/107
[2021-06-15 10:10] VITALS: BP 131/107
== END 2021-06-15 10:10 | disposition home or self-care (01) ==
LOC: ED 08:43
PROC: 0H91XZZ Drainage of Face Skin, External Approach (ICD-10-PCS; principal; 2021-06-15)
DX: J34.0 Abscess, furuncle and carbuncle of nose (principal); I10 Essential (primary) hypertension; J45.909 Unspecified asthma, uncomplicated; F17.200 Nicotine dependence, unspecified, uncomplicated; B95.62 Methicillin resistant Staphylococcus aureus infection as the cause of diseases classified elsewhere

== ENCOUNTER 2021-10-02 14:18 | Emergency (ER) | payer MEDICARE ==
[2021-10-02] VITALS (7 sets, daily range): BP systolic 126–157; BP diastolic 72–124
[~2021-10-02] VITALS: Ht 167.6 cm; Wt 81.8 kg
[~2021-10-02 14:18] MED LIST changes: +BACTRIM DS1 TAB PO; +DIFLUCAN150 MG PO; +HYDROCO/APAP1 TA9 PO; +MUPIROCIN21; +OMNI-PAC300 MG PO
[2021-10-02 15:20] LABS: HEMATOCRIT 32.4 % (37.0-47.0); HEMOGLOBIN 10.3 g/dl (12.0-16.0); MEAN CELL VOLUME 99.1 fL CALC (80.0-100.0); MEAN CORPUSCULAR HGB 31.5 pG CALC (26.0-32.0); MEAN CORPUSCULAR HGB CONC 31.8 g/dL CAL (32.0-36.0); NEUT# 6.16 thou/uL (2.00-7.15); RED BLOOD COUNT 3.27 mill/uL (4.20-5.60); RED CELL DISTRI WIDTH 19.9 % (11.5-15.5)
[2021-10-02 15:34] LABS: IMMATURE GRANULOCYTES 0.4 % (0.0-5.0)
[2021-10-02 15:56] LABS: ALBUMIN 3.9 g/dL (3.2-5.0); ALKALINE PHOSPHATASE 84 u/l (38-126); ANION GAP 9 (6-22 (CALC)); BILIRUBIN, TOTAL 0.5 mg/dL (0.0-1.4); BUN 12 mg/dL (8-23); BUN/CREATININE RATIO 21 (12-20 (CALC)); CHLORIDE 101 mmol/l (95-108); CREATININE 0.6 mg/dL (0.5-1.0); GFR FOR AFR.AMER. > 60 ML/MIN (>=60 (CALC)); GFR OTHER RACES > 60 ML/MIN (>=60 (CALC)); SGOT/AST 32 u/l (9-36); SODIUM 133 mmol/l (137-146); TOTAL PROTEIN 6.5 g/dL (6.3-8.2)
[2021-10-02 15:59] LABS: CARBON DIOXIDE 27 mmol/l (22-30)
== END 2021-10-02 19:21 | disposition short-term general hospital (02) ==
LOC: ED 14:18
PROVIDERS: Family Medicine
DX: S32.010A Wedge compression fracture of first lumbar vertebra, initial encounter for closed fracture (principal); I71.4 Abdominal aortic aneurysm, without rupture; I10 Essential (primary) hypertension; J44.9 Chronic obstructive pulmonary disease, unspecified; F17.210 Nicotine dependence, cigarettes, uncomplicated; W01.0XXA Fall on same level from slipping, tripping and stumbling without subsequent striking against object, initial encounter; Y92.009 Unspecified place in unspecified non-institutional (private) residence as the place of occurrence of the external cause; Z20.822 Contact with and (suspected) exposure to COVID-19
CPT/HCPCS: Q9967

== ENCOUNTER 2022-06-01 04:54 | Emergency (ER) | payer MEDICARE ==
[~2022-06-01] VITALS: Ht 167.6 cm; Wt 81.7 kg
[2022-06-01 04:59] VITALS: BP 120/84
[2022-06-01 05:15] VITALS: BP 114/73
[2022-06-01 05:30] VITALS: BP 116/78
[2022-06-01] MEDS ORDERED: LORTAB 1010 MG PO (06:58)
[2022-06-01 07:14] VITALS: BP 116/78
[2022-06-03] MEDS ORDERED: LORTAB 1010 MG PO (19:07)
== END 2022-06-01 07:30 | disposition home or self-care (01) ==
LOC: ED 04:54
DX: S33.5XXA Sprain of ligaments of lumbar spine, initial encounter (principal); I10 Essential (primary) hypertension; J44.9 Chronic obstructive pulmonary disease, unspecified; F17.200 Nicotine dependence, unspecified, uncomplicated; X58.XXXA Exposure to other specified factors, initial encounter

== ENCOUNTER 2022-06-18 07:52 | Emergency (ER) | payer MEDICARE ==
[~2022-06-18] VITALS: Ht 167.6 cm; Wt 81.6 kg
[2022-06-18] VITALS (24 sets, daily range): BP systolic 106–150; BP diastolic 42–111
[~2022-06-18 07:52] MED LIST changes: +LORTAB 1010 MG PO
[2022-06-18 08:33] LABS: BASO% 0.6 % (0-3); EOS% 1.8 % (0-8); HEMATOCRIT 31.7 % (37.0-47.0); IMMATURE GRANULOCYTES 0.5 % (0.0-5.0); MEAN CELL VOLUME 93.8 fL CALC (80.0-100.0); MEAN CORPUSCULAR HGB 29.6 pG CALC (26.0-32.0); MEAN CORPUSCULAR HGB CONC 31.5 g/dL CAL (32.0-36.0); MONO% 14.2 % (2-13); NEUT# 6.35 thou/uL (2.00-7.15); NEUT% 65.7 % (42-76); RED BLOOD COUNT 3.38 mill/uL (4.20-5.60); RED CELL DISTRI WIDTH 20.3 % (11.5-15.5)
[2022-06-18 08:50] LABS: LYMPH% 17.2 % (15-41)
[2022-06-18 08:54] LABS: ALBUMIN 3.9 g/dL (3.2-5.0); ALKALINE PHOSPHATASE 155 u/l (38-126); BUN 19 mg/dL (8-23); BUN/CREATININE RATIO 24 (12-20 (CALC)); CARBON DIOXIDE 28 mmol/l (22-30); CHLORIDE 99 mmol/l (95-108); CREATININE 0.8 mg/dL (0.5-1.0); GFR FOR AFR.AMER. > 60 ML/MIN (>=60 (CALC)); GFR OTHER RACES > 60 ML/MIN (>=60 (CALC)); LIPASE 78 u/l (23-300); SGOT/AST 34 u/l (9-36); SODIUM 132 mmol/l (137-146)
[2022-06-18 09:15] LABS: ANION GAP 9 (6-22 (CALC)); BILIRUBIN, TOTAL 0.4 mg/dL (0.02-1.3); POTASSIUM 4.3 mmol/l (3.5-5.1); TOTAL PROTEIN 6.7 g/dL (6.3-8.2)
[2022-06-18] MEDS ORDERED: TRAMADOL HYDROC50 M1 PO (13:33)
[2022-06-18] MEDS ORDERED: ZOFRAN4 MG/TAB PO (13:33)
[2022-06-18 14:04] LABS: URINE BILIRUBIN - DIPSTICK NEGATIVE (NEGATIVE); URINE BLOOD DIPSTICK TRACE-LYSED (NEGATIVE); URINE COLOR YELLOW; URINE GLUCOSE - DIPSTICK NEGATIVE (NEGATIVE); URINE KETONE NEGATIVE (NEGATIVE); URINE LEUK ESTERASE SMALL (NEGATIVE); URINE NITRITE - DIPSTICK NEGATIVE (Negative); URINE PH 7.5 (4.5-8.0); URINE PROTEIN - DIPSTICK NEGATIVE (NEG-TRACE); URINE SPECIFIC GRAVITY <=1.005; URINE UROBILINOGEN - DIPSTICK 0.2 E.U./dL (0.2)
[2022-06-18 14:09] LABS: URINE RBC 0-2 RBC/hpf (0-5)
[2022-06-18 14:10] LABS: URINE BACTERIA MODERATE hpf; URINE SQUAMOUS EPITHELIAL CELL FEW EPI/hpf (0-FEW)
== END 2022-06-18 13:50 | disposition home or self-care (01) ==
LOC: ED 07:52
PROVIDERS: Family Medicine
DX: R10.31 Right lower quadrant pain (principal); R10.32 Left lower quadrant pain; I71.40 Abdominal aortic aneurysm, without rupture, unspecified; I97.89 Other postprocedural complications and disorders of the circulatory system, not elsewhere classified; Y83.2 Surgical operation with anastomosis, bypass or graft as the cause of abnormal reaction of the patient, or of later complication, without mention of misadventure at the time of the procedure; I10 Essential (primary) hypertension; J44.9 Chronic obstructive pulmonary disease, unspecified; F17.200 Nicotine dependence, unspecified, uncomplicated; Z95.828 Presence of other vascular implants and grafts
CPT/HCPCS: Q9967

== ENCOUNTER 2023-12-18 06:50 | Inpatient (IN) | payer MEDICARE ==
[2023-12-18] VITALS (28 sets, daily range): BP systolic 106–168; BP diastolic 54–95
[~2023-12-18] VITALS: Ht 167.6 cm; Wt 80.0 kg
[~2023-12-18 06:50] MED LIST changes: +ASHWAGANDHA PO; +B121000 MC1 MT; -B121000 MCG PO; +GABAPENTIN100 MG PO; +MELATONIN3 M1 PO; +MELOXICAM7.5 MG PO; +METHOCARBAMOL500 MG PO; +PHILLIPS MOM311 MG PO; +PROTONIX40 M2 PO; +TRAMADOL HYDROC50 M1 PO; +ZOFRAN4 MG/TAB PO
--- NOTE | 2023-12-18 07:00 | NUR ---
PT TO ROOM VIA WC WITH DAUGHTER
[2023-12-18] MEDS ORDERED: ONDANSETRON HCl 4 MG/2 ML SDV IV ONE (07:35)
[2023-12-18] MEDS ORDERED: SODIUM CHLORIDE 0.9% 1,000 ML IV ONE (07:35)
[2023-12-18] MEDS ORDERED: KETOROLAC TROMETHAMINE 30 MG/ML SDV IV ONE (07:35)
[2023-12-18 08:14] LABS: BASO% 0.2 % (0-3); EOS% 0.1 % (0-8); HEMATOCRIT 30.1 % (37.0-47.0); HEMOGLOBIN 9.7 g/dl (12.0-16.0); IMMATURE GRANULOCYTES 0.4 % (0.0-5.0); MEAN CELL VOLUME 101.3 fL CALC (80.0-100.0); MEAN CORPUSCULAR HGB 32.7 pG CALC (26.0-32.0); MEAN CORPUSCULAR HGB CONC 32.2 g/dL CAL (32.0-36.0); MONO% 7.3 % (2-13); NEUT# 22.48 thou/uL (2.00-7.15); RED BLOOD COUNT 2.97 mill/uL (4.20-5.60); RED CELL DISTRI WIDTH 22.7 % (11.5-15.5); URINE BILIRUBIN - DIPSTICK Negative (NEGATIVE); URINE BLOOD DIPSTICK Negative (NEGATIVE); URINE GLUCOSE - DIPSTICK Negative (NEGATIVE); URINE KETONE Negative (NEGATIVE); URINE LEUK ESTERASE Trace (NEGATIVE); URINE NITRITE - DIPSTICK Negative (Negative); URINE PROTEIN - DIPSTICK Negative (NEG-TRACE); URINE UROBILINOGEN - DIPSTICK 0.2 E.U./dL (0.2)
[2023-12-18 08:25] LABS: URINE COLOR Yellow
[2023-12-18 08:32] LABS: ALKALINE PHOSPHATASE 106 u/l (38-126); ANION GAP 6 (6-22 (CALC)); BUN 15 mg/dL (8-23); BUN/CREATININE RATIO 24 (12-20 (CALC)); CARBON DIOXIDE 29 mmol/l (22-30); CHLORIDE 104 mmol/l (95-108); CREATININE 0.6 mg/dL (0.5-1.0); ESTIMATED GFR 94 ML/MIN (>=90 (CALC)); LIPASE 57 u/l (23-300); POTASSIUM 3.6 mmol/l (3.5-5.1); SGOT/AST 40 u/l (9-36); SODIUM 135 mmol/l (137-146); TOTAL PROTEIN 6.6 g/dL (6.3-8.2)
--- NOTE | 2023-12-18 08:34 | NUR ---
PATIENT LYING IN BED WITH NO ACUTE DISTRESS NOTED AT THIS TIME.
[2023-12-18] MEDS ORDERED: Ciprofloxacin 200 mg Premix 200 ML IV ONE (09:55)
[2023-12-18] MEDS ORDERED: HYDROmorphone HCL 2 MG/AMP IV PRN (10:15)
[2023-12-18] MEDS ORDERED: SODIUM CHLORIDE 0.9% 1,000 ML IV PRN (10:15)
--- NOTE | 2023-12-18 11:57 | NUR ---
DR. PINTO AT BEDSIDE.
[2023-12-18] MEDS ORDERED: KETOROLAC TROMETHAMINE 15 MG/ML SDV IV SCH (12:00)
--- NOTE | 2023-12-18 12:24 | NUR ---
REPORT RECEIVED FROM DOYLERN
--- NOTE | 2023-12-18 12:26 | NUR ---
REPORT GIVEN TO NICO.
--- NOTE | 2023-12-18 13:03 | NUR ---
PT ARRIVED TO MED/SURG ROOM 272 IN STABLE CONDITION VIA STRETCHER ACCOMPANIED BY BEN KWON.PT AMBULATED TO BEDSIDE WITH A STEADY GAIT. WT AND VS OBTAINED. PT A&O X3, ORIENTED TO ROOM AND CALL LIGHT SYSTEM;PT REPORTS R QUAD ABDOMINAL PAIN THAT STARTED AT 0500 THIS MORNING;CURRENTLY ABDOMINAL PAIN IS RATING 3/10 ON THE PAIN SCALE, PT TO BE MEDICATED WITH SCHEDULED TORADOL 15MG SLOW IVP PER ORDER;ASSESSMENT COMPLETED;RESPIRATIONS SHALLOW ON RA, O2 APPLIED AT 2L VIA NC FOR COMFORT-O2 SATS 92% ON 2L, CLEAR/WHEEZE LUNG SOUNDS;ABDOMEN DISTENDED/SOFT ON PALPATION AND ACTIVE IN ALL 4 QUADRANTS, LAST BM 12/18/23;STRONG PEDAL PULSES,SCD'S APPLIED;SKIN INTACT;TELE MONITORING [address] READ[address] SR;#20G TO RAC FLUSHED AND PATENT, NS STARTED AT 125ML/HR PER ORDER;FALL AND ALLERGY BAND APPLIED TO RIGHT ARM;PT EDUCATED ON NPO DIET STATUS AND VERBALIZES UNDERSTANDING, ICE CHIPS PROVIDED PER ORDER;PT DENIES ANY ADDITIONAL NEEDS AND IS ENCOURAGED TO CALL FOR ASSISTANCE IF NEEDED;FALL PRECAUTIONS IN PLACE WITH BED IN THE LOWEST POSITION AND CALL LIGHT IN REACH;FREQUENT ROUNDS MADE.
--- NOTE | 2023-12-18 13:12 | NUR ---
PATIENT TAKEN TO ROOM 272 WITH TELE #4
[2023-12-18] MEDS ORDERED: DEXTROSE 5% / 0.9% NACL 1,000 ML IV PRN (13:35)
--- NOTE | 2023-12-18 13:38 | NUR ---
AT BEDSIDE DISCUSSING POC WITH PT.
[2023-12-18] MEDS ORDERED: IPRATROPIUM-Albuterol 0.5MG-2.5MG/3 ML NEB PRN (13:40)
[2023-12-18] MEDS ORDERED: BREZTRI AEROSPH1 AER IN (13:58)
[2023-12-18] MEDS ORDERED: ONDANSETRON HCl 4 MG/2 ML SDV IV PRN (14:15)
--- NOTE | 2023-12-18 14:30 | NUR ---
PT RESTING IN SEMI FOWLERS POSITION WATCHING TV;RESPIRATIONS REMAIN SHALLOW ON O2 @ 2L VIA NC;PT REPORTS MINIMAL ABDOMINAL PAIN AT THIS TIME, PAIN SCALE AND REPORTING EDUCATED;PT REQUESTS IV SITE CHANGE, NEW #22G STARTED TO RW ON 2ND ATTEMPT BY THIS WRITTER AND IVF CHANGED TO D5 NS @ 125ML/HER PER ORDER. #20G TO RAC REMOVED WITH CATHETER INTACT. NICOTINE PATCH APPLIED TO RIGHT SHOULDER;TELE MONITORING IN PLACE;PT DENIES ANY ADDITIONAL NEEDS;CALL LIGHT IN REACH;FREQUENT ROUNDS MADE.
[2023-12-18] MEDS ORDERED: PATIENT' OWN MED 1 EA DOSE PO PRN (14:45)
--- NOTE | 2023-12-18 14:50 | NUR ---
BENITO MONSALVE SENT TO PHARMACY FOR VERIFICATION FOR USE.
[2023-12-18] MEDS ORDERED: NICOTINE TRANSDERMAL 21 MG/PATCH TD SCH (15:00)
--- NOTE | 2023-12-18 16:00 | NUR ---
PT APPEARS TO BE SLEEPING IN SEMI FOWLERS POSITION;RESPIRATIONS APPEAR SHALLOW ON O2 @ 2L VIA NC;NO S/S OF DISTRESS NOTED;TELE MONITORING IN PLACE;#22G TO RW INFUSING D5 NS @ 125ML/HR;ALL SAFETY PRECAUTIONS REMAIN IN PLACE WITH BED IN THE LOWEST POSITION AND CALL LIGHT IN REACH;FREQUENT ROUNDS MADE.
--- NOTE | 2023-12-18 20:00 | NUR ---
RECEIVED REPORT FROM NURSE DILLON. PATIENT SITTING IN BED, DAUGHTER IN ROOM, PATINET ONGOING D5NS @ 125CC/HR INFUSING WELL, HOOKEED ON TELEEMTRY, TENDER ABDOMEN RT QUADRANT, WHEEZING NOTED UPOM AUSCULTAION, ON O2 @ 2LPM VIA NC, SCD IN PLACED, PATIENT NPO BUT CAN HAVE ICE CHIPS PER ORDER, DENIES NAUSEA, CALL LIGHT IN REACHED.
[2023-12-18] MEDS ORDERED: PATIENT' OWN MED 1 EA DOSE IN SCH (21:00)
[2023-12-19] VITALS (8 sets, daily range): BP systolic 112–147; BP diastolic 59–79
--- NOTE | 2023-12-19 00:19 | NUR ---
DUE TORADOL GIVEN PS 05/25, BREATHING EVEN UNALBORED CALL LIGHT WITHIN REACHED.
--- NOTE | 2023-12-19 03:12 | NUR ---
PATIENT ASSISTED TO THE BATHROOM, VOIDED, ASSISTED BACK IN BED, PATIENT DENIES PAIN AT THIS TIME, BREATHING UNLABORED CALL LIGHT WITHIN REACHED.
[2023-12-19 05:38] LABS: BASO% 0.5 % (0-3); EOS% 1.1 % (0-8); HEMATOCRIT 25.3 % (37.0-47.0); HEMOGLOBIN 7.8 g/dl (12.0-16.0); LYMPH% 14.6 % (15-41); MEAN CELL VOLUME 103.7 fL CALC (80.0-100.0); MEAN CORPUSCULAR HGB CONC 30.8 g/dL CAL (32.0-36.0); MONO% 16.4 % (2-13); NEUT# 5.81 thou/uL (2.00-7.15); NEUT% 66.4 % (42-76); RED BLOOD COUNT 2.44 mill/uL (4.20-5.60)
[2023-12-19 06:10] LABS: CREATININE 0.8 mg/dL (0.5-1.0); POTASSIUM 3.7 mmol/l (3.5-5.1)
--- NOTE | 2023-12-19 07:30 | NUR ---
SHIFT CHANGE REPORT, PT SLEEPING IN LEFT-SIDED POSITION, NO SIGN DISCOMFORT, BREATHING SHALLOW AND NON-LABORED, IVF INFUSING, TELE MONITOR IN PLACE, CALL HERNÁNDEZ IN REACH AND BED LOCKED IN LOWEST POSITION.
[2023-12-19] MEDS ORDERED: GABAPENTIN 100 MG/CAP PO SCH (09:00)
[2023-12-19] MEDS ORDERED: FLUoxetine HCL 10 MG/CAP PO SCH (09:00)
[2023-12-19] MEDS ORDERED: amLODIPine BESYLATE 5 MG/TAB PO SCH (09:00)
[2023-12-19] MEDS ORDERED: MONTELUKAST SODIUM 10 MG/TAB PO SCH (09:00)
[2023-12-19] MEDS ORDERED: CIPROFLOXACIN HCL 500 MG/TAB PO SCH (11:00)
--- NOTE | 2023-12-19 11:24 | NUR ---
ALERT AND ORIENTED SITTING UP AT BEDSIDE, DR PINTO ROUNDED AND WROTE ORDERS AFTER DISCUSSING PLAN OF CARE WITH PT.
[2023-12-19] MEDS ORDERED: metroNIDAZOLE 500 MG/TAB PO SCH (15:00)
--- NOTE | 2023-12-19 15:42 | NUR ---
RESTING IN BED AND REPORTS FEELING MUCH BETTER, TOLERATED LIQUID MEAL WIHT NO DIFFICULTY, ALL NEEDS ADDRESSED.
--- NOTE | 2023-12-19 20:00 | NUR ---
PATIENT UP AND ABOUT IN THE ROOM WITH STEADY GAIT. ALERT AND ORIENTEDX3. PATIENT STATES THAT SHE IS FEELING MUCH BETTER AND HOPING TO GO HOME TOMMORROW. PATIENT IS TAKING PO FLUIDS AND TOLERATING WELL. DENIES ANY PAIN OR NAUSEA AT THIS TIME. ABD IS SOFT WITH ACTIVGE BS. STATES THAT SHE IS HAVING LOOSE STOOLSX3 TODAY. DENIES ANY DIFFICULTY WITH URINATION. LUNGS ARE CLEAR. TELE MONITOR IN PLACE READING SR60'S WITH PVC'S AND PAC'S. IVF D5NS PATENT AND INFUSING VIA RIGHT WRIST AT 125CC/HR. SITE IS HEALTHY. SAFETY PRECAUTIONS REINFORCED. CALL LIGHT IN REACH. WILL CONT TO MONITOR.
--- NOTE | 2023-12-20 00:17 | NUR ---
PATIENT RESTING IN BED-MEDICATED WITH TORADOL ORDERED. PATIENT WITH NO COMPLAINTS AT THIS TIME. TELE MONITOR IN PLACE. IVF PATENT AND INFUSING RIGHT WRIST AT 125CC/HR. CALL LIGHT IN REACH. WILL CONT TO MONITOR.
--- NOTE | 2023-12-20 03:37 | NUR ---
PATIENT RESTING IN BED AT THIS TIME-AWAKE AND ALERT. STATES THAT SHE HAS BEEN SLEEPING ON AND OFF. PATIENT ANXIOUS TO GO HOME-POSSIBLE DISCHARGE TODAY. DISCUSSED WITH PATIENT TO ADVANCE DIET TOLERATED AND TAKE IT SLOW. VERBALIZES UNDERSTANDING. IVF D5NS PATENT AND INFUSING VIA RIGHT WRIST AT 125CC/HR. TELE MONITOR IN PLACE AND READING SR-60'S WITH PVC'S AND PAC'S. NO P AIN AT THIS TIME. CALL LIGHT IN REACH. WILL CONT TO MONITOR.
[2023-12-20 03:57] VITALS: BP 139/72
[2023-12-20 05:37] LABS: BASO% 0.6 % (0-3); EOS% 2.5 % (0-8); HEMATOCRIT 24.1 % (37.0-47.0); HEMOGLOBIN 7.6 g/dl (12.0-16.0); IMMATURE GRANULOCYTES 0.4 % (0.0-5.0); LYMPH% 15.9 % (15-41); MEAN CELL VOLUME 105.2 fL CALC (80.0-100.0); MEAN CORPUSCULAR HGB 33.2 pG CALC (26.0-32.0); MEAN CORPUSCULAR HGB CONC 31.5 g/dL CAL (32.0-36.0); MONO% 12.2 % (2-13); NEUT# 5.42 thou/uL (2.00-7.15); NEUT% 68.4 % (42-76); RED BLOOD COUNT 2.29 mill/uL (4.20-5.60)
[2023-12-20 07:24] VITALS: BP 144/55
--- NOTE | 2023-12-20 07:37 | NUR ---
PATIENT LAYING IN BED. PATIENT A&OX4 AND ABLE TO MAKE NEEDS KNOWN. PATIENT DENIES ANY NEEDS AT THIS TIME. WILL CONTINUE TO MONITOR.
[2023-12-20] MEDS ORDERED: CIPROFLOXACN500 MG PO (08:58)
[2023-12-20] MEDS ORDERED: INFLUENZA VIRUS VACCINE FLUZONE HD 2024/25 0.5 ML INJ IM SCH (09:00)
[2023-12-20 10:24] VITALS: BP 135/74
--- NOTE | 2023-12-20 12:00 | NUR ---
PATIENT SITTING ON SIDE OF BED, HAVING LUNCH. PATIENT DENIES ANY NEEDS AT THIS TIME. WILL CONTINUE TO MONITOR.
--- NOTE | 2023-12-20 15:41 | NUR ---
Discharge instructions given. Patient verbalizes understanding of same. Discharged in stable condition via Wheelchair to Home with staff. All belongings sent with pt. PATIENT IV AND TELE BOX REMOVED.
== END 2023-12-20 15:18 | disposition home or self-care (01) | DRG 392 ==
LOC: ED 06:50 → ED-I 07:48 → ED 07:48 → ED-I 10:00 → ED 10:22 → MS2 10:23
PROVIDERS: Family Medicine; ADMIT Surgery; ATTEND Surgery
DX: K57.20 Diverticulitis of large intestine with perforation and abscess without bleeding (principal); I10 Essential (primary) hypertension; J44.9 Chronic obstructive pulmonary disease, unspecified; I71.43 Infrarenal abdominal aortic aneurysm, without rupture; F41.9 Anxiety disorder, unspecified; F17.210 Nicotine dependence, cigarettes, uncomplicated; Z23 Encounter for immunization; Z90.49 Acquired absence of other specified parts of digestive tract; Z95.828 Presence of other vascular implants and grafts; Z20.822 Contact with and (suspected) exposure to COVID-19
CPT/HCPCS: 90662; Q9967